=== PATIENT | female | born 1995 | race Caucasian/White ===

== ENCOUNTER 2020-05-25 19:02 | Emergency (ER) | payer BC, OTHER ==
[~2020-05-25] VITALS: Ht 175.3 cm; Wt 68.0 kg
[2020-05-25] MEDS ORDERED: ALDACTONE50 MG PO (19:38)
[2020-05-25] MEDS ORDERED: KEFLEX500 MG PO (21:07)
[2020-05-25] MEDS ORDERED: PYRIDIUM200 MG PO (21:07)
== END 2020-05-25 21:46 | disposition home or self-care (01) ==
LOC: ED 19:02
DX: N39.0 Urinary tract infection, site not specified (principal)
CPT/HCPCS: 81001; 87088; 99283; A9270; C9803; U0002